=== PATIENT | male | born 1990 | race Caucasian/White ===

== ENCOUNTER 2021-10-11 15:21 | Emergency (ER) | payer MEDICAID ==
[~2021-10-11] VITALS: Ht 167.6 cm; Wt 135.0 kg
[2021-10-11 21:34] VITALS: BP 134/91
== END 2021-10-11 21:35 | disposition home or self-care (01) ==
LOC: ER 15:21
DX: U07.1 COVID-19 (principal)
CPT/HCPCS: 71045; 87426; 99284; C9803